=== PATIENT | male | born 1965 | race Two or more races ===

== ENCOUNTER 2025-05-13 12:32 | Emergency (ER) | payer MEDICAID, OTHER ==
[~2025-05-13] VITALS: Ht 182.9 cm; Wt 80.0 kg
--- NOTE | 2025-05-13 13:44 | ED.PDOC ---
GI ASSESSMENT HPI Comments This is a 60-year-old male with a PMHx of type 2 diabetes mellitus, HIV (nondetectable, on meds as per patient), hypertension, breast cancer (last chemo 8 months ago, right mastectomy done, Mets to the bones- detected in [facility] 3 weeks ago), has come to the ER today via EMS with complaints of abdominal pain. Patient reports that it has been 1 week since he has been having right upper quadrant abdominal pain, 10/10 in intensity, constant, burning in nature, which has been worsening the entire week, not relieved by the pain management he takes for his bone Mets, radiating to the back, associated with nausea, subjective fever, chills and 1 episode of nonbloody, watery emesis today morning. Patient denies any chest pain, GERD symptoms, recent sick contacts, intake of earlier spicy food. He reports taking hormonal therapy via port catheter which was placed in his right chest. Chief Complaint: Abdominal Pain Time Seen by MD: 13:00 Reviewed Notes: Medications, Allergies Allergies: Coded Allergies: Ibuprofen (Verified Allergy, Severe, 05/13/25) Information Source: Patient Mode of Arrival: EMS Timing: Days Duration: Since onset Prehospital treatment: None Quality: Burning Vomitus: Watery Stool: Normal Severity: Severe Recent: Other (Diagnosed of bone cancer 3 weeks ago) Recent Hx of: None Pain Location: RUQ Modifying Factors: Nothing Associated sign and symptoms: Nausea, Vomiting, Abdominal Pain Past Medical History PAST MEDICAL HISTORY: Cancer (Right wrist cancer, mastectomy done, bone cancer diagnosed 3 weeks ago), DM, HIV, HTN Surgical History (Other): Right breast mastectomy Family History Family History: Reviewed,noncontributory to illness Social History Smoker: Cigarettes, Less Than 1 Pack/Day Alcohol: Denies ETOH Use Drugs: Marijuana Lives In: Home Constitutional: reports: chills, fever; denies: diaphoresis, fatigue, malaise, sweats, weakness, others EENTM: denies: blurred vision, double vision, ear bleeding, ear discharge, ear drainage, ear pain, ear ringing, eye pain, eye redness, hearing loss, mouth pain, mouth swelling, nasal discharge, nose bleeding, nose congestion, nose pain, photophobia, tearing, throat pain, throat swelling, voice changes, others Respiratory: denies: cough, hemoptysis, orthopnea, SOB at rest, shortness of breath, SOB with excertion, stridor, wheezing, others Cardiovascular: denies: chest pain, dizzy spells, diaphoresis, Dyspnea on exertion, edema, irregular heart beat, left arm pain, lightheadedness, palpitations, PND, syncope, others Gastrointestinal: reports: abdominal pain (Right upper quadrant), nausea, vomiting; denies: abdomen distended, blood streaked bowels, constipated, diarrhea, dysphagia, difficulty swallowing, hematemesis, melena, poor appetite, poor fluid intake, rectal bleeding, rectal pain, others Genitourinary: denies: burning, dysuria, flank pain, frequency, hematuria, incontinence, penile discharge, penile sore, pain, testicle pain, testicle swelling, urgency, others Neurological: denies: dizziness, fainting, headache, left sided numbness, left sided weakness, numbness, paresthesia, pre-existing deficit, right sided numbness, right sided weakness, seizure, speech problems, tingling, tremors, weakness, others Musculoskeletal: denies: back pain, gout, joint pain, joint swelling, muscle pain, muscle stiffness, neck pain, others Integumetry: denies: bruises, change in color, change in hair/nails, dryness, laceration, lesions, lumps, rash, wounds, others Allergic/Immunocompromised: denies: Difficulty Healing, Frequent Infections, Hives, Itching, others Hematologic/Lymphatic: denies: anemia, blood clots, easy bleeding, easy bruising, swollen glands, others Endocrine: denies: excessive hunger, excessive sweating, excessive thirst, excessive urination, flushing, intolerance to cold, intolerance to heat, unexplained weight gain, unexplained weight loss, others Psychiatric: denies: anxiety, bipolar disorder, depression, hopeless, panic disorder, schizophrenia, sleepless, suicidal, others Physical Exam General Appearance: Moderate Distress HEENT: Other (No pallor, no icterus, patient maintains eye contact) Neck: Full Range of Motion, Non-Tender Respiratory: No Respiratory Distress, Normal Breath Sounds, Other (No wheezing, no stridor, no rhonchi heard) Cardiovascular: No Edema, No JVD, No Murmur, Tachycardia Breast Exam: Normal, Other (Presence of bandage on right chest, board catheter for hormonal therapy) Gastrointestinal: Epigastric, No Organomegaly, No Pulsatile Mass, Normal Bowel Sounds, RUQ, Tenderness Genitalia: Deferred Pelvic: Deferred Rectal: Deferred Extremities: Normal inspection, Normal range of motion, Non-tender, No pedal edema Neurologic: Alert, No Motor Deficits, No Sensory Deficits Cerebellar Function: Normal Reflexes: Normal Skin: Normal Color Lymphatic: Other (No cervical lymphadenopathy) Was a procedure done? Was a procedure done?: No GI differential Dx Differential Diagnosis: Cholecystitis, Gastritis/PUD, Pancreatitis Other Differential Diagnosis Liver Mets X-Ray, Labs, Meds, VS Vital Signs Date Time Temp Pulse Resp B/P (MAP) Pulse Ox O2 Delivery O2 Flow Rate FiO2 05/13/25 15:10 97 16 97 Room Air 05/13/25 15:10 98.2 97 16 184/96 (125) 98 98.2 05/13/25 15:05 97 18 184/90 05/13/25 12:32 97.9 110 18 174/100 99 97.9 Lab Test 05/13/25 13:17 Range/Units White Blood Count 8.3 4.4-10.8 10^3/uL Red Blood Count 3.69 L 4.5-5.90 10^6/uL Hemoglobin 10.5 L 13.5-17.5 g/dL Hematocrit 32.7 L 41.0-53.0 % Mean Corpuscular Volume 88.5 80.0-100.0 fL Mean Corpuscular Hemoglobin 28.4 28.0-32.0 pg Mean Corpuscular Hemoglobin Concent 32.1 32.0-36.0 g/dL Red Cell Distribution Width 19.3 H 11.8-14.3 % Platelet Count 112 L 140-450 10^3/uL Mean Platelet Volume 7.8 6.9-10.8 fL Neutrophils (%) (Auto) 37.0-80.0 % Lymphocytes (%) (Auto) 10.0-50.0 % Monocytes (%) (Auto) 0.0-12.0 % Basophils (%) (Auto) 0.0-2.0 % Neutrophils # (Auto) 1.6-8.6 10 ^3/uL Lymphocytes # (Auto) 0.4-5.4 10 ^3/uL Monocytes # (Auto) 0-1.3 10 ^3/uL Differential Total Cells Counted 100.0 100 Neutrophils % (Manual) 55 37.0-80.0 Band Neutrophils % (Manual) 1 Lymphocytes % (Manual) 26 10.0-50.0 Monocytes % (Manual) 12 0-12 Eosinophils % (Manual) 4 0-7 Basophils % (Manual) 0 0.0-2.0 Metamyelocytes % (manual) 0 Myelocytes % (Manual) 2 Promyelocytes % (Manual) 0 Blast Cells % (Manual) 0 Nucleated Red Blood Cells 1.0 % Reactive Lymphocytes 0 Platelet Estimate Decreased Sodium Level 139 136-145 mmol/L Potassium Level 3.8 3.5-5.1 mmol/L Chloride Level 102 98-107 mmol/L Carbon Dioxide Level 26 20-31 mmol/L Anion Gap 11 5-15 Blood Urea Nitrogen 8 L 9-23 mg/dL Creatinine 1.02 0.700-1.30 mg/dL Glomerular Filtration Rate Calc 85 >90 mL/min BUN/Creatinine Ratio 7.8 L 10.0-20.0 Serum Glucose 119 H 74-106 mg/dL Calcium Level 10.6 H 8.7-10.4 mg/dL Total Bilirubin 0.5 0.2-1.0 mg/dL Aspartate Amino Transferase (AST) 54 H 13-40 U/L Alanine Aminotransferase (ALT) 22 7-40 U/L Alkaline Phosphatase 124 H 46-116 U/L Total Protein 7.8 5.7-8.2 g/dL Albumin 5.0 H 3.2-4.8 g/dL Lipase 39 12-53 U/L Current Medications Medications (Trade) Dose Ordered Sig/Noah Route Start Time Stop Time Status Last Admin Morphine Sulfate 4 mg ONCE ONCE IV 05/13/25 14:00 05/13/25 14:05 DC 05/13/25 15:05 Ondansetron HCl (Zofran) 4 mg ONCE ONCE IV 05/13/25 14:00 05/13/25 14:05 DC 05/13/25 15:04 Images Reviewed?: Images reviewed and evaluated by me Time of 1ST Reevaluation: 15:45 Reevaluation 1ST: Improved Patient Education/Counseling: Diagnosis, Treatment Family Education/Counseling: No Family Present Comments Patient came to the ER with chief complaints of right upper quadrant pain. CBC shows hemoglobin 10.5 with normal MCV. Hematocrit is 32.7. Patient's platelet count is low at 112. BMP shows slightly elevated liver enzymes AST 54, ALP 124, ALT 22, raised albumin- 5.0, raised calcium 10.5. Lipase levels were normal at 39. A right upper quadrant ultrasound reveals 'Few scattered hypoechoic liver lesions, suboptimally assessed on this study. If not previously documented sug gest further assessment with contrast-enhanced CT; Gallstones without acute cholecystitis.' given patient's history of bone cancer and breast cancer, this could be possible liver Mets. Patient has been advised to follow up with oncologist and primary care physician. We gave him ondansetron 4 mg IV stat and morphine 4 mg IV stat for his pain which improved with meds. Patient is stable for discharge and has communicated understanding and agreed to the discharge plan. SEPSIS Sepsis Screen Date sepsis recognized/suspect: May 13, 2025 Time Sepsis recognized/suspect: 1251 Recent Procedure: No On Antibiotic Therapy: No Respiratory Rate >20: No Heart Rate >90: Yes Temp<36 C (96.8 F) or >38.3 C: No SBP <90 or MAP <65 mmHG: No New Acute Mental Status Change: No Is the patient on CPAP, BIPAP,: No Physician Orders Urinalysis (05/13/25 13:08) Gallbladder (05/13/25 13:08) Vital Signs Date Time Temp Pulse Resp B/P (MAP) Pulse Ox O2 Delivery O2 Flow Rate FiO2 05/13/25 15:10 97 16 97 Room Air 05/13/25 15:10 98.2 97 16 184/96 (125) 98 98.2 05/13/25 15:05 97 18 184/90 05/13/25 12:32 97.9 110 18 174/100 99 97.9 Laboratory Tests Test 05/13/25 13:17 White Blood Count 8.3 10^3/uL (4.4-10.8) Medications Medications Dose Ordered Sig/Noah Route Start Time Stop Time Status Last Admin Dose Admin Morphine Sulfate 4 mg ONCE ONCE IV 05/13/25 14:00 05/13/25 14:05 DC 05/13/25 15:05 Ondansetron HCl 4 mg ONCE ONCE IV 05/13/25 14:00 05/13/25 14:05 DC 05/13/25 15:04 Departure 1 Departure Time of Disposition: 15:50 Impression: Primary Impression: Cholelithiasis Additional Impression: Lesion of liver Disposition: HOME / SELF CARE / HOMELESS Condition: Fair Discharged With: Self Critical Care Note Critical Care Time?: No Stability Stability form required: No Heart Score Heart Score: Heart Score Response (Comments) Value History N/A 0 EKG N/A 0 Age N/A 0 Risk Factors N/A 0 Troponin N/A 0 Total 0 DU SPICER RESIDENT May 13, 2025 13:44
--- NOTE | 2025-05-13 14:01 | DVH ---
INDICATION: ruq pain TECHNIQUE: Multiple real-time sonographic images were obtained of the right upper quadrant. COMPARISON: None FINDINGS: Liver: Normal in size measuring 13.4 cm with multiple rounded hypoechoic lesions throughout the liver. Mild hepatic steatosis. Gallbladder: Few stones. No distention, wall thickening, or inflammatory changes. CBD: 0.3 cm, within normal limits. Pancreas: Unremarkable. Right kidney: 10.1 cm. No stones or hydronephrosis. IMPRESSION: Few scattered hypoechoic liver lesions, suboptimally assessed on this study. If not previously documented suggest further assessment with contrast-enhanced CT. Gallstones without acute cholecystitis.
[2025-05-13 14:04] LABS: Hematocrit 32.7 % (41.0-53.0); Hemoglobin 10.5 g/dL (13.5-17.5); Mean Corpuscular Hemoglobin 28.4 pg (28.0-32.0); Mean Corpuscular Volume 88.5 fL (80.0-100.0)
[2025-05-13 14:08] LABS: Alanine Aminotransferase 22 U/L (7-40); Anion Gap 11 (5-15); BUN/Creatinine Ratio 7.8 (10.0-20.0); Bilirubin, Total 0.5 mg/dL (0.2-1.0); Carbon Dioxide 26 mmol/L (20-31); Chloride 102 mmol/L (98-107); Lipase 39 U/L (12-53); Potassium 3.8 mmol/L (3.5-5.1); Sodium 139 mmol/L (136-145); Total Protein 7.8 g/dL (5.7-8.2)
[2025-05-13 14:09] LABS: Albumin 5.0 g/dL (3.2-4.8); Alkaline Phosphatase 124 U/L (46-116); Blood Urea Nitrogen 8 mg/dL (9-23); Calcium 10.6 mg/dL (8.7-10.4); Glucose 119 mg/dL (74-106)
[2025-05-13 14:34] LABS: Nucleated Red Blood Cells % 1.0 %; Total Cells Counted 100.0 (100)
[2025-05-13] MEDS: ONDANSETRON HCL 4 MG/2 ML VIAL IV ONE (15:04)
[2025-05-13] MEDS: MORPHINE SULFATE 4 MG/ML SYR/VIAL IV ONE (15:05)
[2025-05-13 16:17] LABS: Urine Protein, UAD 1+ (Negative)
[2025-05-13 16:20] VITALS: PULSE 100; RESP 19; TEMP 98.7; O2SAT 97
[2025-05-13 16:25] VITALS: BP 126/86; PULSE 100; RESP 19
== END 2025-05-13 16:29 | disposition home or self-care (01) ==
LOC: ER 12:32 → EDBD 12:32 → ER 16:28
DX: K80.20 Calculus of gallbladder without cholecystitis without obstruction (principal); K76.9 Liver disease, unspecified; F12.90 Cannabis use, unspecified, uncomplicated; F17.210 Nicotine dependence, cigarettes, uncomplicated; E11.9 Type 2 diabetes mellitus without complications; I10 Essential (primary) hypertension; Z88.6 Allergy status to analgesic agent; Z90.11 Acquired absence of right breast and nipple
CPT/HCPCS: 36415; 76705; 80053; 81001; 83690; 85007; 85027; 96374; 96375; 99285; J2270; J2405